=== PATIENT | female | born 1990 | race Caucasian/White ===

== ENCOUNTER 2021-04-13 16:23 | Emergency (ER) | payer OTHER, SELFPAY ==
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
[2021-04-13 16:58] VITALS: BP 109/70; PULSE 73; RESP 18; TEMP 36.7; O2SAT 99; BMI 29.2
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
[2021-04-13 19:37] LABS: UPreg QC Valid YES; Urine Pregnancy NEGATIVE (NEGATIVE)
[2021-04-13] MEDS: Lidocaine 4 % Patch ADH..PATCH 1 PATCH TRANSDERMA (19:55)
[2021-04-13] MEDS: Ondansetron ODT 4 MG TAB.RAPDIS TRANSLINGU (19:55)
[2021-04-13] MEDS: Cyclobenzaprine HCl 10 MG TABLET PO (19:55)
== END 2021-04-13 21:27 | disposition home or self-care (01) ==
PROVIDERS: Physician Assistant; Emergency Provider Internal Medicine; PCP Internal Medicine
DX: S16.1XXA Strain of muscle, fascia and tendon at neck level, initial encounter (principal); S06.0X0A Concussion without loss of consciousness, initial encounter; V43.52XA Car driver injured in collision with other type car in traffic accident, initial encounter; Y93.89 Activity, other specified; Y92.414 Local residential or business street as the place of occurrence of the external cause; Y99.9 Unspecified external cause status
CPT/HCPCS: 70450; 72125; 81025; 99284

== ENCOUNTER 2021-04-22 16:24 | Emergency (ER) | payer OTHER, SELFPAY ==
--- NOTE | 2021-04-22 | ECG_ITS ---
Test Reason : DIZZINESS Blood Pressure : / mmHG Vent. Rate : 083 BPM Atrial Rate : 083 BPM P-R Int : 136 ms QRS Dur : 074 ms QT Int : 374 ms P-R-T Axes : 049 101 048 degrees QTc Int : 439 ms Normal sinus rhythm Rightward axis Borderline ECG No previous ECGs available Referred By: Generic ED Physician Electronically Signed By:ELIZABETH MOLINA
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
[2021-04-22 16:51] VITALS: BP 141/81; PULSE 79; RESP 18; TEMP 36.5; O2SAT 99; BMI 29.2
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
[2021-04-22 18:12] LABS: UPreg QC Valid YES; Urine Pregnancy NEGATIVE (NEGATIVE)
[2021-04-22] MEDS: diazePAM 5 MG TABLET PO (18:29)
== END 2021-04-22 19:09 | disposition home or self-care (01) ==
PROVIDERS: Physician Assistant; Emergency Provider Internal Medicine; PCP Internal Medicine
DX: S06.0X0A Concussion without loss of consciousness, initial encounter (principal); G44.309 Post-traumatic headache, unspecified, not intractable; V43.52XA Car driver injured in collision with other type car in traffic accident, initial encounter; Y93.9 Activity, unspecified; Y92.410 Unspecified street and highway as the place of occurrence of the external cause; Y99.9 Unspecified external cause status
CPT/HCPCS: 70486; 81025; 93005; 99284

== ENCOUNTER 2023-01-31 11:03 | Emergency (ER) | payer BC, OTHER, SELFPAY ==
--- NOTE | 2023-01-31 11:11 | ED_ITS ---
HPI - URI/Sore Throat General Chief Complaint: Upper Respiratory Symptoms Stated Complaint: sore throat Time Seen by Provider: 01/31/23 11:25 Source: patient, RN notes reviewed and old records reviewed Mode of arrival: ambulatory History of Present Illness HPI Narrative: 32-year-old female with no significant past medical history presenting to the ED complaining of sore throat, dry cough x yesterday. Admits herself and family were exposed to sick contacts with strep pharyngitis. Denies fever, chills, ear pain, difficulty/inability to swallow, SOB/CP MD elicited complaint: cough, sore throat and nasal congestion Related Data Previous Rx's Medication Instructions Recorded cyclobenzaprine 10 mg tablet 10 mg PO TID PRN muscle spasm #10 04/13/21 tabs ibuprofen 600 mg tablet 600 mg PO Q8H PRN pain #14 tabs 04/13/21 lidocaine 5 % topical patch 1 patch topical DAILY #15 ea 04/13/21 (Lidoderm) tramadol 50 mg tablet 50 mg PO BID PRN severe pain 04/22/21 (scale score 7-10) #10 tabs Allergies Allergy/AdvReac Type Severity Reaction Status Date / Time Penicillins Allergy Anaphylaxis Verified 01/31/23 11:25 Review of Systems Review of Systems: Constitutional: No Fever, No Chills ENT/Mouth: No Ear Pain, + Nasal Congestion, No Sinus Pain, No Hoarseness, +sore throat, + Rhinorrhea, No Swallowing Difficulty Cardiovascular: No Chest Pain, No SOB Respiratory: +Cough, No Sputum, No Wheezing Gastrointestinal: No Nausea, No Vomiting, No Diarrhea, No Constipation, No Abdominal pain Genitourinary: No Dysuria, No Urinary Frequency Musculoskeletal: No joint pain, No Myalgias, No Joint Swelling Skin: No Skin Lesions, No rash Neuro: No Weakness Yes all other systems are reviewed and are negative Constitutional: Constitutional: Reports as per [facility] Past Medical History Attestation statement: The following information was validated with the patient. Source: old records reviewed Medical History No pertinent past medical history Social History Social History Advance Directives: No Physical Exam Vital Signs: Vital Signs: Last Vital Signs Temp 97.3 F 01/31/23 11:25 Pulse 75 01/31/23 11:25 Resp 16 01/31/23 11:25 BP 123/84 01/31/23 11:25 Pulse Ox 96 01/31/23 11:25 O2 Del Method Room Air 01/31/23 11:25 BMI result Body Mass Index 34.4 Const: General: cooperative, healthy appearing and no acute distress Orientation/consciousness: patient oriented x3 Limitations: no limitations HEENT: Head: Yes normal to inspection and Yes atraumatic Ears: hearing grossly normal bilaterally, external ears normal, TM's normal bilaterally and mastoids normal General nose exam: Normal external nose present Face and sinus: Yes normal facial exam Mouth: Normal oral and palatal mucosa present Throat: Yes posterior oropharynx normal, Yes tonsils normal, Yes uvula midline, No peritonsillar mass, No uvula laterally displaced and No uvular edema Eyes: General: appearance normal, both eyes and all related structures EOM: EOMs intact bilaterally Neck: Neck: Yes normal visual inspection and Yes no meningeal signs Resp: Effort & Inspection: normal respiratory effort and no respiratory distress Auscultation: clear to auscultation bilaterally, no crackles, no rales, no rhonchi and no wheezes Cardio: Rate: regular rate Heart sounds: S1 normal heart sound present and S2 normal heart sound present Skin: Rashes: no rashes Wounds: no wounds Neuro: General: patient oriented x3, tone normal and no meningeal signs Gait exam (Neuro): Normal gait present Extrem: General: Yes normal to inspection Course Course Course Narrative: COVID/flu and rapid strep negative Results discussed with patient including worrisome signs and symptoms and strict return precautions, and when to return to the emergency department. They verbalized understanding and feel safe for discharge at this time. Medical Decision Making Medical Decision Making MDM Narrative: 32-year-old female with no significant past medical history presenting to the ED complaining of sore throat, dry cough x yesterday. On exam vital signs stable, NAD, nontoxic appearing, or pharynx WNL, TMs WNL, lungs CTA. Concern for viral illness versus pharyngitis. No evidence of [employer]. Low suspicion for pneumonia/bronchitis, mastoiditis, otitis externa/media Plan: COVID/flu and rapid strep testing Please refer to course for remaining clinical decision making, interpretation of labs/imaging results, and discussions with consultants and/or family members. Differential Diagnosis Differential Diagnoses: The differential diagnosis associated with the presentation includes As above Admission/Observation Consideration of admission/observation: Escalation of care including admission/observation considered Lab Data MDM Lab Attestation statement: I reviewed the patient's lab results. Labs: Lab Results 01/31/23 01/31/23 01/31/23 Range/Units 11:48 11:48 11:48 COVID-19 ([facility]) Negative (Negative) COVID-19 Clin Com See Note Influenza Type A (CR) Negative (Negative) Influenza Type B (CR) Negative (Negative) Influenza A & B Note See Note S. pyogenes GrpA CR Negative (Negative) External Record Review External record reviewed: Inpatient record, Office record, Outpatient record, Prior outpatient labs, Prior outpatient radiology, Primary care record and Outside ED record Tests considered The following testing was considered but not selected: As above Discharge Plan Discharge Clinical Impression: Upper respiratory infection Patient Disposition: Home, Self-Care Instructions: Viral Syndrome (ED) Additional Instructions: Please stay hydrated Alternate Tylenol & Motrin as needed Follow-up with your doctor if symptoms persist or worsen, youre not eating or drinking, develop high fever unresolved medications return to the ED Prescriptions: No Action cyclobenzaprine 10 mg tablet 10 mg PO TID PRN (Reason: muscle spasm) Qty: 10 0RF lidocaine [Lidoderm] 5 % adhesive patch,medicated 1 patch topical DAILY Qty: 15 0RF Rx Instructions: leave on most painful area for up to 12 hrs ibuprofen 600 mg tablet 600 mg PO Q8H PRN (Reason: pain) Qty: 14 0RF tramadol 50 mg tablet 50 mg PO BID PRN (Reason: severe pain (scale score 7-10)) Qty: 10 0RF Referrals: Physician,Unknown J [Primary Care Provider] -
[2023-01-31 11:25] VITALS: BP 123/84; PULSE 75; RESP 16; TEMP 36.3; O2SAT 96; BMI 34.4
[2023-01-31 12:33] LABS: IDNOW Serial# BCCEAD1C; Influenza A Negative (Negative); Influenza B2 Negative (Negative)
[2023-01-31 12:37] LABS: IDNOW Serial# 6674DD1D; Strep A Nucleic Acid Negative (Negative)
[2023-01-31 12:49] LABS: COVID-19 Test Negative (Negative); IDNOW Serial# 08D9AD1C
== END 2023-01-31 13:06 | disposition home or self-care (01) ==
PROVIDERS: Physician Assistant; Emergency Provider Emergency Medicine
DX: J06.9 Acute upper respiratory infection, unspecified (principal); R05.9 Cough, unspecified; Z20.822 Contact with and (suspected) exposure to COVID-19; Z20.828 Contact with and (suspected) exposure to other viral communicable diseases; Z79.899 Other long term (current) drug therapy
CPT/HCPCS: 87502; 87635; 87651; 99282; 99283